=== PATIENT | female | born 1980 | race Caucasian/White ===

== ENCOUNTER 2017-05-12 13:10 | Outpatient (CLI) | payer SELFPAY ==
[2017-05-12 15:23] VITALS: BP 101/62
--- NOTE | 2017-05-13 08:14 | Ultrasound Report ---
History: well being BIOPHYSICAL PROFILE: 2 - breathing movements 2 - movements 2 - posture and tone 2 - Qualitative amniotic fluid volume 8 - TOTAL SCORE OF POSSIBLE 8 Heart Rate (bpm) 137 Gestation: Single Position: Cephalic Amniotic Fluid: DEANDRA = 18.7 cm Heart Rate: 137 BPM
== END 2017-05-12 16:53 | disposition home or self-care (01) ==
LOC: TRG 13:10
PROVIDERS: ATTEND Obstetrics & Gynecology
DX: O09.523 Supervision of elderly multigravida, third trimester (principal); Z3A.38 38 weeks gestation of pregnancy
CPT/HCPCS: 59025; 76815; 76819

== ENCOUNTER 2017-05-19 04:19 | Inpatient (IN) | payer OTHER ==
[2017-05-19] MEDS ORDERED: PITOCin/NS 20 UNIT/1000ML DRIP 20,000 MILLIUNITS/1,000 ML BAG IV ONE (04:22)
[2017-05-19] MEDS: PITOCin/NS 20 UNIT/1000ML DRIP 20 UNITS/1,000 ML BAG IV SCH ×2 (04:50→05:57)
[2017-05-19] MEDS ORDERED: XYLOCAINE 2% INFILTRATI ONE ×3 (05:07→05:34)
[2017-05-19] MEDS ORDERED: BRETHINE IVP PRN (05:34)
[2017-05-19] MEDS ORDERED: MINERAL OIL PO PRN (05:34)
[2017-05-19] MEDS ORDERED: ePHEDrine SULFATE IV PRN (05:34)
[2017-05-19] MEDS ORDERED: BRETHINE SUB-Q PRN (05:34)
[2017-05-19] MEDS ORDERED: TUCKS PAD TP PRN (05:36)
[2017-05-19] MEDS ORDERED: BENADRYL PO PRN (05:36)
--- NOTE | 2017-05-19 05:43 | History and Physical Report ---
History of Present Illness Date of examination: 05/19/17 Date of admission: 05/19/17 04:20 Chief complaint: Intense Labor Pains History of present illness: States she had a uncomplicated course, and was being monitored for Pre- Diabetes (admission accucheck: 95). care at [facility]. Past History Past Medical History: no pertinent history Past Surgical History: no surgical history Family/Genetic History: none Social history: no significant social history, - Obstetrical History Expected Date of Delivery: 05/11/17 Actual Gestation: 41 Week(s) 1 Day(s) : 6 Para: 4 Hx # Term Pregnancies: 4 Spontaneous Abortions: 1 Number of Living Children: 4 Medications and Allergies Allergies Allergy/AdvReac Type Severity Reaction Status Date / Time No Known Allergies Allergy Verified 02/14/16 01:02 Home Medications Medication Instructions Recorded Confirmed Last Taken Type oxyCODONE /ACETAMINOPHEN [Percocet 1 tab PO Q6H PRN #30 tablet 08/20/15 Unknown Rx 5/325 mg] Ibuprofen [Motrin 600 MG tab] 600 mg PO Q6H PRN #40 tablet 02/15/16 Unknown Rx Active Meds: Active Medications Ephedrine Sulfate (Ephedrine Sulfate) 10 mg IV Q2M PRN PRN Reason: Hypotension Oxytocin/Sodium Chloride (Pitocin/Ns 20 Unit/1000ml Drip) 20 units in 1,000 mls @ 0 mls/hr IV DIRECT HOLLY PRN Reason: As Directed Lactated Ringer's (Lactated Ringers) 1,000 mls @ 125 mls/hr IV DIRECT HOLLY Oxytocin/Sodium Chloride (Pitocin/Ns 20 Unit/1000ml Drip) 20 units in 1,000 mls @ 125 mls/hr IV DIRECT HOLLY Lidocaine (Xylocaine 2%) 20 ml INFILTRATI ONCE ONE Stop: 05/19/17 05:35 Mineral Oil (Mineral Oil) 30 ml PO QHS PRN PRN Reason: Constipation Terbutaline Sulfate (Brethine) 0.25 mg SUB-Q ONCE PRN PRN Reason: Hyperstimulation/Hypertonicity Terbutaline Sulfate (Brethine) 0.25 mg IVP ONCE PRN PRN Reason: Hyperstimulation/Hypertonicity Review of Systems All systems: negative - Vital Signs Vital signs: Vital Signs Pulse BP 75 138/75 05/19/17 04:33 05/19/17 04:33 Temp Pulse Resp BP Pulse Ox 98 F 72 18 132/75 05/19/17 04:44 05/19/17 05:38 05/19/17 04:44 05/19/17 05:38 - Physical Exam Breasts: Positive: normal Cardiovascular: Regular rate Lungs: Positive: Clear to auscultation, Normal air movement Abdomen: Positive: normal appearance, soft, normal bowel sounds Genitourinary (Female): Positive: normal external genitalia, normal perenium Vagina: Positive: normal moisture Uterus: Positive: enlarged - Obstetrical FHR: auscultation normal Cervical Dilatation: 10 Cervical Effacement Percentage: 100 station: +3 Uterine Tone Measurement Phase: Resting Uterine Contraction Intensity: Moderate Results All other labs normal. Assessment and Plan A: IUP @ 41 1/7 Weeks Active Labor P: Admit to L&D per routine orders Patient delivered on the stretcher on her way to her labor room
[2017-05-19 05:47] LABS: Hematocrit 38.5 % (30.3-42.9); Hemoglobin 13.2 gm/dl (10.1-14.3)
--- NOTE | 2017-05-19 05:49 | Procedure Note ---
OB Delivery Note - Delivery Date of Delivery: 05/19/17 (0420) Surgeon: CATALINA GROVES Estimated blood loss: 200cc - Vaginal Delivery presentation: vertex Delivery position: OA Intrapartum events: precipitous labor- <3hr Delivery induction: none Route of delivery: Delivery placenta: spontaneous Episiotomy: none Delivery laceration: 1st degree Delivery repair: vicryl Anesthesia: local Delivery comments: Precipitous Vaginal delivery on stretcher on her way to her labor room, attended by Julissa Evans RN. 6'14 male over a 1st degree vaginal laceration with Apgars of 8 and 9 at 0420 on 05/19/2017. Sponanteous delivery of placenta complete and intact by MO Groves at 0510. Fundus is firm and midline at the U. Lochia is scant. 1st degree vaginal laceration repaired with 2-0 Vicryl on a SH under local 2% Lidocaine. Placenta discarded. - Infant A at 1 minute: 8 at 5 minutes: 9 Gender: Male (6'14)
[2017-05-19] MEDS ORDERED: LACTATED RINGERS 1,000 ML IV SCH (06:00)
[2017-05-19] MEDS ORDERED: SODIUM CHLORIDE FLUSH SYRINGE 10 ML IV NR (06:00)
[2017-05-19] MEDS ORDERED: PITOCin/NS 20 UNIT/1000ML DRIP 20 UNITS/1,000 ML BAG IV SCH (06:00)
[2017-05-19 06:14] LABS: Hematocrit 38.9 % (30.3-42.9); Hemoglobin 13.2 gm/dl (10.1-14.3); Mean Corpuscular HGB Conc 34 % (30-34); Mean Corpuscular Hemoglobin 32 pg (28-32); Mean Corpuscular Volume 94 fl (79-97); Platelet Count 162 K/mm3 (140-440); Red Blood Count 4.12 M/mm3 (3.65-5.03); Red Cell Distribution Width 14.8 % (13.2-15.2); White Blood Count 12.4 K/mm3 (4.5-11.0)
[2017-05-19] MEDS: MOTRIN PO SCH (09:18)
[2017-05-19] MEDS: NORCO 5/325 PO PRN (09:19)
[2017-05-19] MEDS ORDERED: Fluarix Quad 2017-2018(36 MOS+ IM ONE (12:00)
[2017-05-19 16:09] LABS: Hematocrit 35.6 % (30.3-42.9)
[2017-05-19 16:36] LABS: HIV-1 Antigen p24 Non React (Non React); HIVR-1/2 Ab Non React (Non React)
[2017-05-20] MEDS: NORCO 5/325 PO PRN ×2 (00:58→09:08)
[2017-05-20] MEDS: MOTRIN PO SCH ×4 (00:58→16:47)
[2017-05-20] MEDS ORDERED: BOOSTRIX IM ONE (06:00)
--- NOTE | 2017-05-20 08:55 | Progress Note ---
Assessment and Plan A: day 1 S/P P: Anticipate Subjective - Subjective Date of service: 05/20/17 Principal diagnosis: day 1 S/P Interval history: day 1 S/P . Patient is doing well. She is voiding without difficulty and ambulating well. She is tolerating a regular diet without nausea or vomiting. Patient denies headache, chest pain, shortness of breath, cough, or heavy vaginal bleeding. Patient reports: appetite normal, voiding normally, pain well controlled, flatus , ambulating normally [place]: doing well Objective - Vital Signs Latest vital signs: Vital Signs Temp Pulse Resp BP 05/20/17 00:00 98.2 F 68 20 103/53 05/19/17 16:30 98.6 F 62 18 88/51 05/19/17 12:10 98.2 F 74 19 112/72 05/19/17 09:19 20 05/19/17 09:18 20 Intake and Output 05/19/17 05/20/17 05/20/17 23:59 07:59 15:59 Intake Total 120 240 Balance 120 240 Intake: Oral 120 240 Other: Total, Intake Amount 120 120 # Voids Void 2 1 - Exam Cardiovascular: Present: Regular rate, Normal S1, Normal S2 Lungs: Present: Clear to auscultation Abdomen: Present: normal appearance, soft. Absent: distention, tenderness, guarding, rigidity Uterus: Present: normal, firm, fundal height below umbilicus. Absent: bogginess , tenderness Extremities: Present: normal. Absent: tenderness, edema
[2017-05-21] MEDS: MOTRIN PO SCH ×2 (00:06→05:50)
[2017-05-21] MEDS: NORCO 5/325 PO PRN (08:39)
--- NOTE | 2017-05-21 09:49 | Progress Note ---
Assessment and Plan A: day 2 S/P spontaneous vaginal delivery. P: Discharge patient home today. Advised patient to continue taking her vitamins at home. discharge instructions and warning signs were discussed with patient in detail. Advised patient to avoid IC, avoid heavy lifting and housework, and avoid driving. Advised patient to follow up at [facility] in 6 weeks. Patient voiced understanding of all above instructions. Depo Provera 150 mg IM given prior to hospital discharge. Subjective - Subjective Date of service: 05/21/17 Principal diagnosis: day 2 S/P Interval history: day 2 S/P . Patient is doing well. She desires discharge today. She is voiding without difficulty and ambulating well. She is tolerating a regular diet without nausea or vomiting. Patient reports small amount of lochia and denies clots. Patient denies headache, chest pain, shortness of breath, cough, abdominal pain, leg pain, or heavy vaginal bleeding. She denies symptoms of depression. Patient would like to use Depo Provera for control and states she would like the injection prior to hospital discharge today. Patient reports: appetite normal, voiding normally, pain well controlled, flatus , ambulating normally [place]: doing well Objective - Vital Signs Latest vital signs: Vital Signs Temp Pulse Resp BP 05/21/17 07:40 98.2 F 64 18 106/54 05/21/17 06:37 18 05/21/17 05:50 18 05/21/17 03:29 72 107/56 05/21/17 01:06 18 05/21/17 00:52 98.2 F 61 18 98/48 05/21/17 00:06 18 05/20/17 16:47 20 05/20/17 16:20 98.2 F 60 18 112/67 05/20/17 12:40 98.0 F 68 18 111/53 Intake and Output 05/20/17 05/21/17 05/21/17 23:59 07:59 15:59 Intake Total 120 600 Balance 120 600 Intake: Oral 120 Intake, Free Water 600 Other: Total, Intake Amount 120 # Voids Void 1 2 - Exam Cardiovascular: Present: Regular rate, Normal S1, Normal S2 Lungs: Present: Clear to auscultation Abdomen: Present: normal appearance, soft. Absent: distention, tenderness, guarding, rigidity Uterus: Present: normal, firm, fundal height below umbilicus. Absent: bogginess , tenderness Extremities: Present: normal. Absent: tenderness, edema
--- NOTE | 2017-05-21 10:04 | Discharge Summary ---
Providers - Providers Date of Admission: 05/19/17 04:20 Date of discharge: 05/21/17 Attending physician: CRYSTAL ABBOTT MD None Primary care physician: CRYSTAL ABBOTT MD Hospitalization Reason for admission: active labor Delivery: Episiotomy: none Laceration: 1st degree complications: none Discharge diagnosis: IUP at term delivered [place] baby: male Pertinent studies: None Hospital course: Normal hospital course Condition at discharge: Good Disposition: DC-01 TO HOME OR SELFCARE - Discharge Diagnoses (1) Term delivered Status: Acute Plan - Provider Discharge Summary Activity: routine, no sex for 6 weeks, no heavy lifting 4 weeks, no strenuous exercise Diet: routine Instructions: routine Additional instructions: Call your doctor immediately for: * Fever > 100.5 * Heavy vaginal bleeding ( >1 pad per hour) * Severe persistent headache * Shortness of breath * Reddened, hot, painful area to leg or breast - Follow up plan Follow up: CRYSTAL ABBOTT MD [Primary Care Provider] - 6 Weeks
[2017-05-21] MEDS ORDERED: DEPO-PROVERA (CONTRACEPTION) IM ONE (11:00)
[2017-05-21 12:43] VITALS: BP 103/50
== END 2017-05-21 12:30 | disposition home or self-care (01) | DRG 775 ==
LOC: TRG 04:19 → LD 04:20 → OB 07:40
PROVIDERS: ADMIT Obstetrics & Gynecology; ATTEND Obstetrics & Gynecology
PROC: 10E0XZZ Delivery of Products of Conception, External Approach (ICD-10-PCS; 2017-05-19)
PROC: 0HQ9XZZ Repair Perineum Skin, External Approach (ICD-10-PCS; 2017-05-19)
PROC: 3E0234Z Introduction of Serum, Toxoid and Vaccine into Muscle, Percutaneous Approach (ICD-10-PCS; principal; 2017-05-20)
DX: O62.3 Precipitate labor (principal); O70.0 First degree perineal laceration during delivery; Z3A.41 41 weeks gestation of pregnancy; Z37.0 Single live birth; Z23 Encounter for immunization
CPT/HCPCS: 36415; 82962; 85014; 85018; 85027; 86592; 86706; 86762; 86803; 86850; 86900; 86901; 87806; 90471; 90686; 90715; 99211; G0463; J1050; J2590